=== PATIENT | female | born 1995 | race African-American/Black ===

== ENCOUNTER 2018-03-08 20:24 | Emergency (ER) | payer BC, OTHER ==
[~2018-03-08] VITALS: Ht 162.6 cm; Wt 66.7 kg
[~2018-03-08 20:24] MED LIST: IBUPROFEN600 MG PO; IBUPROFEN800 MG ORAL; LEVAQUIN500 MG ORAL; NORCO 5-325 TA1 EACH PO
[2018-03-08] MEDS ORDERED: NKM (20:34)
[2018-03-08] MEDS ORDERED: COLACE100 MG ORAL (21:06)
[2018-03-08 21:13] VITALS: BP 123/89
--- NOTE | 2018-03-08 23:09 | Emergency Room Report ---
History of Present Illness General Chief Complaint: Pain Source: Patient Present Illness HPI Patient is a 22-year-old female who presented after increased rectal bleeding. The patient reports having increased pain to her rectal area. She states she had recent anal sex and subsequently began having increased pain to the area. She reported having a recent negative STD check. Patient reports having the normal colored stool as well as increased constipation. She denies any fever. Allergies: Coded Allergies: PENICILLINS (Verified Allergy, Mild, lips swell up, 01/09/13) Patient History Last Menstrual Period: 03/02/18 Now: No Reviewed Nursing Documentation: PMH: Agreed; PSxH: Agreed Nursing Documentation-PMH Past Medical History: No Stated History Review of Systems All Other Systems: negative except mentioned in HPI Physical Exam Vital Signs Date Time Temp Pulse Resp B/P (MAP) Pulse Ox O2 Delivery O2 Flow Rate FiO2 03/08/18 20:29 99.4 79 18 128/95 98 Room Air 99.3 General Appearance: well appearing, no apparent distress, alert, GCS 15 Head: normocephalic, atraumatic ENT: hearing grossly normal, normal voice Neck: full range of motion, supple Respiratory: no respiratory distress, speaking full sentences Rectal: other - fissure at 12:00 Musculoskeletal: no calf tenderness Neurologic: alert, oriented x3, responsive, multiple resaw operator III-XII nml as tested, normal gait Psychiatric: mood/affect normal Skin: no rash Medical Decision Making Diagnostic Impression: Primary Impression: Rectal fissure ER Course The patient presented for rectal bleeding. Differential diagnosis included was not limited to hemorrhoid, proctitis, colitis, fissure among others. Patient has a benign exam and does not appear to require any further imaging or laboratory testing at this time. The patient was advised to use stool softeners. She denies to follow-up with her primary care physician for reexamination to evaluate for fissure healing. The patient is advised not to perform anal sex Last Vital Signs Date Time Temp Pulse Resp B/P (MAP) Pulse Ox O2 Delivery O2 Flow Rate FiO2 03/08/18 21:13 98.9 83 18 123/89 98 Room Air 98.9 Status: improved Disposition: HOME, SELF-CARE Condition: Stable Scripts Docusate Sodium* (COLACE*) 100 Mg Capsule 100 MG ORAL TWICE A DAY, #20 CAP Prov: Manuel Giles MD 03/08/18 Referrals: [facility] [place],REFERRING (PCP) Patient Instructions: Anal Fissure, Adult Manuel Giles MD Mar 08, 2018 23:09
== END 2018-03-08 21:13 | disposition home or self-care (01) ==
LOC: EMR 21:00
DX: K60.2 Anal fissure, unspecified (principal); Z88.0 Allergy status to penicillin
CPT/HCPCS: 99283